=== PATIENT | male | born 1955 | race Hispanic/Latino ===

== ENCOUNTER 2022-04-12 23:51 | Emergency (ER) | payer OTHER ==
[2022-04-13] MEDS ORDERED: LIDOCAINE 1% MPF 2 ML AMPULE ONE (00:05)
[2022-04-13] MEDS ORDERED: LIDOCAINE 1% MPF 30 ML VIAL ONE (00:08)
[2022-04-13] MEDS ORDERED: LIDOCAINE 1% W/EPI 1:100,000 MDV 20 ML VIAL ONE (00:10)
[2022-04-13] MEDS ORDERED: TETANUS & DIPHTHERIA TOX,ADULT 0.5 ML VIAL ONE (01:44)
--- NOTE | 2022-04-13 01:58 | EDPHYS ---
Physician Documentation [facility] Name: Conor Mcclellan Jr Age: 66 yrs Sex: Male : 1955 Arrival Date: 04/12/2022 Time: 23:52 Bed 7 Private MD: ED Physician Sg Messina HPI: 04/13 02:01 This 66 yrs old Male presents to ER via Ambulatory with complaints of ms3 Laceration To Hand. 02:01 The patient has a laceration related to: Opening box occurred at home, and there are no ms3 complicating factors. The injury was accidental. The laceration(s) is(are) located on the left hand. Onset: The symptoms/episode began/occurred just prior to arrival. Associated signs and symptoms: Pertinent positives: heavy bleeding, Pertinent negatives: dizziness, numbness distal to injury, suspected foreign body. Historical: - Allergies: 00:11 PENICILLINS; ke1 - Immunization history:: Flu vaccine is not up to date. - Social history:: Smoking status: Patient reports the use of cigarette tobacco products, smokes one-half pack cigarettes per day. ROS: 02:01 Constitutional: Negative for fever, and chills. ENT: Negative for injury, pain, and ms3 discharge, Neck: Negative for injury, pain, and swelling, Cardiovascular: Negative for chest pain, and palpitations. Respiratory: Negative for shortness of breath, cough, wheezing, and pleuritic chest pain, Abdomen/GI: Negative for abdominal pain, nausea, vomiting, diarrhea, and constipation. 02:01 Skin: Positive for laceration(s). 02:01 All other systems are negative. Exam: 02:01 Constitutional: This is a well developed, well nourished patient who is awake, alert, ms3 and in no acute distress. Head/Face: Normocephalic, atraumatic. Chest/axilla: Normal chest wall appearance and motion. Nontender with no deformity. Cardiovascular: Regular rate and rhythm with a normal S1 and S2. No gallops, murmurs, or rubs. Normal PMI, no JVD. No pulse deficits. Respiratory: Lungs have equal breath sounds bilaterally, clear to auscultation and percussion. No rales, rhonchi or wheezes noted. No increased work of breathing, no retractions or nasal flaring. Abdomen/GI: Soft, non-tender, with normal bowel sounds. No distension or tympany. No guarding or rebound. No evidence of tenderness throughout. 02:01 Musculoskeletal/extremity: Extremities: noted in the left hand: laceration, FROM of L thumb, sensation of L thumb and L index finger intact, arterial bleeding present. 02:01 Skin: Vital Signs: 00:09 BP 165 / 82; Pulse 62; Resp 18; Temp 98.6; Pulse Ox 100% on R/A; Weight 108.86 kg; ke1 Height 5 ft. 7 in. (170.18 cm); Pain 5/10; 01:00 BP 165 / 76; Pulse 60; Resp 19; Pulse Ox 98% on R/A; sm5 02:25 BP 154 / 75; Pulse 65; Resp 18; Pulse Ox 100% on R/A; ke1 00:09 Body Mass Index 37.59 (108.86 kg, 170.18 cm) ke1 Laceration: 02:01 Wound Repair of 10cm ( 3.9in ) muscle penetrating laceration to left hand. Linear ms3 shaped.. Minimal contamination.. Arterial bleeding noted.. Distal neuro/vascular/tendon intact. Anesthesia: Wound infiltrated with 5 mls of 1% lidocaine w/ Epi. Wound prep: Copious irrigation. Skin closed with 14 4-0 Prolene using simple sutures and sterile technique. Dressed with 4x4's. Patient tolerated well. MDM: 00:57 Patient medically screened. ms3 02:05 Differential diagnosis: superficial laceration, vascular injury, Laceration. Data ms3 reviewed: vital signs, nurses notes. Counseling: I had a detailed discussion with the patient and/or guardian regarding: the historical points, exam findings, and any diagnostic results supporting the discharge/admit diagnosis, the need for outpatient follow up, to return to the emergency department if symptoms worsen or persist or if there are any questions or concerns that arise at home. ED course: Discussed physical exam findings with patient and his . Patient to follow-up with Dr Davis in 2-3 days. Patient understands and agrees with plan. All questions were answered. Return precautions discussed include worsening symptoms, or any other concerns. On reevaluation patient is alert and oriented x4, in no apparent distress, nontoxic-appearing, speaking full sentences, ambulatory in emergency department, wound hemostatic. 04/13 00:05 Order name: Suture Tray Setup; Complete Time: 00:12 tw5 04/13 00:12 Order name: Gloves, Sterile; Complete Time: 00:12 tw5 Administered Medications: 00:13 Drug: Lidocaine-Epinephrine -1%: (1:100,000) 10 ml {Note: administered at bedside by tw5 Dr. Messina.} Volume: 20 ml; Route: Infiltration; 01:52 Drug: ADAcel 0.5 ml {News Videographer: Track. Exp: 02/09/2024. Lot #: [id number]. } ke1 Route: IM; Site: left deltoid; 02:15 Drug: HYDROcodone-acetaminophen 5 mg-325 mg 1 tabs Route: PO; ke1 Disposition Summary: 04/13/22 01:57 Discharge Ordered Location: Home ms3 Condition: Stable ms3 Diagnosis - Laceration of deep palmar arch of left hand ms3 Followup: ms3 - With: Brandon Pendleton MD - When: 2 - 3 days - Reason: Recheck today's complaints Discharge Instructions: - Discharge Summary Sheet ms3 - Laceration Care, Adult ms3 Forms: - Medication Reconciliation Form ms3 - Thank You Letter ms3 - Antibiotic Education ms3 - Prescription Opioid Use ms3 Prescriptions: - Tylenol-Codeine #3 300 mg-30 mg Oral - take 1 tablet by ORAL route every 6-8 hours for 3 days; 10 tablet; Refills: 0, ms3 Product Selection Permitted Signatures: Sg Messina DO DO ms3 Nicole Sellers tw5 Mina Tapia RN RN ke1
--- NOTE | 2022-04-13 01:58 | ER ---
Nurse's Notes [facility] Name: Conor Mcclellan Jr Age: 66 yrs Sex: Male : 1955 Arrival Date: 04/12/2022 Time: 23:52 Bed 7 Private MD: Diagnosis: Laceration of deep palmar arch of left hand Presentation: 04/13 00:09 Chief complaint: Patient states: Cut left hand while working with knife. Coronavirus ke1 screen: Vaccine status: Patient reports receiving the 2nd dose of the covid vaccine. Ebola Screen: No symptoms or risks identified at this time. Complicating Factors: laceration. Initial Sepsis Screen: Does the patient meet any 2 criteria? No. Patient's initial sepsis screen is negative. Does the patient have a suspected source of infection? No. Patient's initial sepsis screen is negative. Risk Assessment: Do you want to hurt yourself or someone else? Patient reports no desire to harm self or others. Onset of symptoms was April 12, 2022. 00:09 Method Of Arrival: Ambulatory ke1 00:09 Acuity: MERARY 3 ke1 Triage Assessment: 00:11 General: Appears uncomfortable, Behavior is appropriate for age. Pain: Complains of ke1 pain in left hand Pain does not radiate. Pain currently is 5 out of 10 on a pain scale. at worst was 9 out of 10 on a pain scale. level that patient reports is acceptable is 5 out of 10 on a pain scale. Neuro: Level of Consciousness is awake, alert, Oriented to person, place, time, situation. Injury Description: Laceration sustained to left hand. Historical: - Allergies: 00:11 PENICILLINS; ke1 - Immunization history:: Flu vaccine is not up to date. - Social history:: Smoking status: Patient reports the use of cigarette tobacco products, smokes one-half pack cigarettes per day. Screenin:14 Abuse screen: Denies threats or abuse. Nutritional screening: No deficits noted. ke1 Tuberculosis screening: No symptoms or risk factors identified. Fall Risk No fall in past 12 months (0 pts). No secondary diagnosis (0 pts). No IV (0 pts). Ambulatory Aid- None/Bed Rest/Nurse Assist (0 pts). Gait- Normal/Bed Rest/Wheelchair (0 pts) Mental Status- Oriented to own ability (0 pts). Total Posada Fall Scale indicates No Risk (0-24 pts). Assessment: 00:14 Musculoskeletal: Capillary refill < 3 seconds, Range of motion: intact in all ke1 extremities. 01:00 Injury Description: Laceration is bleeding moderately. ke1 01:59 Reassessment: Patient is alert, oriented x 3, equal unlabored respirations, skin ke1 warm/dry/pink. Injury Description: sutures done by MD. Vital Signs: 00:09 BP 165 / 82; Pulse 62; Resp 18; Temp 98.6; Pulse Ox 100% on R/A; Weight 108.86 kg; ke1 Height 5 ft. 7 in. (170.18 cm); Pain 5/10; 01:00 BP 165 / 76; Pulse 60; Resp 19; Pulse Ox 98% on R/A; sm5 02:25 BP 154 / 75; Pulse 65; Resp 18; Pulse Ox 100% on R/A; ke1 00:09 Body Mass Index 37.59 (108.86 kg, 170.18 cm) ke1 ED Course: 04/12 23:52 Patient arrived in ED. bp1 23:53 Sg Messina DO is Attending Physician. ms3 05 00:07 Mina Tapia, CANDI is Primary Nurse. ke1 00:11 Triage completed. ke1 00:11 Arm band placed on. ke1 00:14 Bed in low position. ke1 01:48 Assist provider with laceration repair on left hand using sutures. Set up tray. sm5 Performed by Sg Messina DO Patient tolerated well. Wound care: to laceration located on left hand was cleaned with soap and water, Patient tolerated well. 01:56 Brandon Pendleton MD is Referral Physician. ms3 02:25 Patient did not have IV access during this emergency room visit. ke1 Administered Medications: 00:13 Drug: Lidocaine-Epinephrine -1%: (1:100,000) 10 ml {Note: administered at bedside by tw5 Dr. Messina.} Volume: 20 ml; Route: Infiltration; 01:52 Drug: ADAcel 0.5 ml {Product Tester Fiberglass: Hitch Radio. Exp: 02/09/2024. Lot #: [id number]. } ke1 Route: IM; Site: left deltoid; 02:15 Drug: HYDROcodone-acetaminophen 5 mg-325 mg 1 tabs Route: PO; ke1 Medication: 01:59 Vaccine Information Statement (VIS) provided today. Questions and/or concerns ke1 addressed. VIS edition date: April 13, 2022. Outcome: 01:57 Discharge ordered by . ms3 02:25 Discharged to home ambulatory. ke1 02:25 Condition: good 02:25 Discharge instructions given to patient. 02:27 Patient left the ED. ke1 Signatures: Sg Messina DO DO ms3 Lara Urbina Tiffany 5 Ethel Lubin RN RN 5 Mina Tapia RN RN ke1
[2022-04-13] MEDS ORDERED: HYDROCODONE/APAP 5/325 MG TAB ONE (02:17)
[2022-04-13 16:27] VITALS: TEMP 98.6
[2022-04-13 16:37] VITALS: BP 154/75; O2SAT 100
== END 2022-04-13 02:27 | disposition home or self-care (01) ==
LOC: ER 23:51
PROC: 0JQK0ZZ Repair Left Hand Subcutaneous Tissue and Fascia, Open Approach (ICD-10-PCS; principal; 2022-04-13)
DX: S61.412A Laceration without foreign body of left hand, initial encounter (principal); W27.8XXA Contact with other nonpowered hand tool, initial encounter; Y92.009 Unspecified place in unspecified non-institutional (private) residence as the place of occurrence of the external cause; Z23 Encounter for immunization; Z88.0 Allergy status to penicillin; F17.210 Nicotine dependence, cigarettes, uncomplicated
CPT/HCPCS: 90471; 90714; 99283

== ENCOUNTER 2022-04-13 11:15 | Emergency (ER) | payer OTHER ==
--- NOTE | 2022-04-13 12:40 | ER ---
Nurse's Notes [facility] Name: Conor Mcclellan Jr Age: 66 yrs Sex: Male : 1955 Arrival Date: 04/13/2022 Time: 11:15 Bed 11 Private MD: Diagnosis: Laceration without foreign body of left hand-Encounter for wound recheck Presentation: 04/13 11:18 Chief complaint: Patient states: laceration to left palm , was sutured last night but iw now wound is bleeding through bandage. Coronavirus screen: At this time, the client does not indicate any symptoms associated with coronavirus-19. Ebola Screen: Patient negative for fever greater than or equal to 101.5 degrees Fahrenheit, and additional compatible Ebola Virus Disease symptoms Patient denies exposure to infectious person. Patient denies travel to an Ebola-affected area in the 21 days before illness onset. No symptoms or risks identified at this time. Initial Sepsis Screen: Does the patient meet any 2 criteria? No. Patient's initial sepsis screen is negative. Does the patient have a suspected source of infection? No. Patient's initial sepsis screen is negative. Risk Assessment: Do you want to hurt yourself or someone else? Patient reports no desire to harm self or others. 11:18 Method Of Arrival: Ambulatory iw 11:18 Acuity: MERARY 4 iw 11:21 Onset of symptoms was April 13, 2022. iw Historical: - Allergies: 11:20 PENICILLINS; iw - Home Meds: 11:20 losartan-hydrochlorothiazide oral [Active]; Metformin Oral [Active]; iw bisoprolol-hydrochlorothiazide oral [Active]; atorvastatin oral [Active]; - PMHx: 11:20 Diabetes mellitus; iw - Immunization history:: Last tetanus immunization: up to date. - Social history:: Smoking status: . - Family history:: not pertinent. Screenin:45 Abuse screen: Denies threats or abuse. Denies injuries from another. Nutritional iw screening: No deficits noted. Tuberculosis screening: No symptoms or risk factors identified. Fall Risk None identified. Assessment: 11:35 General: Appears in no apparent distress. Behavior is calm, cooperative. Pain: iw Complains of pain in left hand. Neuro: Level of Consciousness is awake, alert, obeys commands, Moves all extremities. Cardiovascular: Patient's skin is warm and dry. Respiratory: Respiratory effort is even, unlabored, Respiratory pattern is regular. Derm: Wound noted left hand. Musculoskeletal: Range of motion: intact in all extremities. Vital Signs: 11:21 BP 155 / 54; Pulse 63; Resp 16; Temp 98.6; Pulse Ox 96% on R/A; iw ED Course: 11:15 Patient arrived in ED. as 11:19 Triage completed. iw 11:20 Marta Meng, RN is Primary Nurse. iw 11:20 Patient has correct armband on for positive identification. iw 11:21 Arm band placed on. iw 11:31 Radha Ruby MD is Attending Physician. ma2 12:40 Brandon Pendleton MD is Referral Physician. ma2 12:48 No provider procedures requiring assistance completed. Patient did not have IV access iw during this emergency room visit. Administered Medications: 12:49 Drug: Triple Antibiotic ([id number]) Ointment 1 application Route: iw Topical; Site: affected area; Medication: 12:49 VIS not applicable for this client. iw Outcome: 12:39 Discharge ordered by . ma2 12:48 Discharged to home ambulatory. iw 12:48 Condition: good 12:48 Discharge instructions given to patient, Instructed on discharge instructions, follow up and referral plans. Demonstrated understanding of instructions, follow-up care. 12:49 Patient left the ED. iw Signatures: Yane Torres as Marta Meng, CANDI CHRISTOPHER iw Radha Ruby MD MD ma2 Corrections: (The following items were deleted from the chart) 11:23 11:21 Pulse 63bpm; Resp 16bpm; Pulse Ox 96% RA; Temp 98.6F; iw iw
--- NOTE | 2022-04-13 12:40 | EDPHYS ---
Physician Documentation [facility] Name: Conor Mcclellan Jr Age: 66 yrs Sex: Male : 1955 Arrival Date: 04/13/2022 Time: 11:15 Bed 11 Private MD: ED Physician Radha Ruby HPI: 04/13 12:32 This 66 yrs old Male presents to ER via Ambulatory with complaints of Suture ma2 Recheck, Laceration. 12:32 66-year-old male, had deep laceration of right hand over thenar muscle that was ma2 repaired last night in our ER. He comes back to the ER because he had an episode where blood was oozing between sutures that soaked the dressing, estimated bleeding to be about 5 mL. Bleeding has stopped. Patient is here for evaluation. Patient also stated that he wants an antibiotics as he is worried that it may get infected. Of note he denies fever or vomiting, denies hand pain or worsening of the swelling or new symptoms,. Historical: - Allergies: 11:20 PENICILLINS; iw - Home Meds: 11:20 losartan-hydrochlorothiazide oral [Active]; Metformin Oral [Active]; iw bisoprolol-hydrochlorothiazide oral [Active]; atorvastatin oral [Active]; - PMHx: 11:20 Diabetes mellitus; iw - Immunization history:: Last tetanus immunization: up to date. - Social history:: Smoking status: . - Family history:: not pertinent. ROS: 12:32 Constitutional: Negative for fever, chills, and weight loss. ma2 12:32 All other systems are negative. Exam: 12:32 Constitutional: This is a well developed, well nourished patient who is awake, alert, ma2 and in no acute distress. Head/Face: Normocephalic, atraumatic. Back: No spinal tenderness. No costovertebral tenderness. Full range of motion. Skin: Warm, dry with normal turgor. Normal color with no rashes, no lesions, and no evidence of cellulitis. MS/ Extremity: Left hand exam shows surgically repaired laceration at the base of the left thumb over the thenar muscles, there is no signs of cellulitis, area is mildly swollen however there is no fluctuance to suggest an abscess, no crepitations area is nontender, there is dry and in good orders, all all sutures are in place, peripheral is brisk sensation is intact all finger movement is intact at 5 out of 5 at both DIP and PIP of both index and thumb finger, sensation intact. No compartment syndrome. No signs of tenosynovitis otherwise no cyanosis. Neurovascular intact. Full, normal range of motion. Neuro: Awake and alert, GCS 15, oriented to person, place, time, and situation. Cranial nerves II-XII grossly intact. Motor strength 5/5 in all extremities. Sensory grossly intact. Cerebellar exam normal. Normal gait. Vital Signs: 11:21 BP 155 / 54; Pulse 63; Resp 16; Temp 98.6; Pulse Ox 96% on R/A; iw MDM: 12:32 Differential diagnosis: Wound briefly oozed blood, at this time there is no active ma2 bleeding or worsening of the swelling, specifically there is no arterial or or venous injury, no cellulitis or tenosynovitis. Data reviewed: vital signs, nurses notes. Counseling: I had a detailed discussion with the patient and/or guardian regarding: the historical points, exam findings, and any diagnostic results supporting the discharge/admit diagnosis, the presence of at least one elevated blood pressure reading (>120/80) during this emergency department visit, the need for outpatient follow up. Response to treatment: the patient's symptoms have markedly improved after treatment. 12:39 Patient medically screened. ma2 04/13 12:12 Order name: Dressing - Wound; Complete Time: 12:47 ma2 Administered Medications: 12:49 Drug: Triple Antibiotic ([id number]) Ointment 1 application Route: iw Topical; Site: affected area; Disposition Summary: 04/13/22 12:39 Discharge Ordered Location: Home ma2 Condition: Stable ma2 Diagnosis - Laceration without foreign body of left hand - Encounter for wound recheck ma2 Followup: ma2 - With: Private Physician - When: Tomorrow - Reason: If symptoms return, Continuance of care Followup: ma2 - With: Brandon Pendleton MD - When: Tomorrow - Reason: If symptoms return, Continuance of care Discharge Instructions: - Discharge Summary Sheet ma2 - Laceration Care, Adult, [id number] ma2 Forms: - Medication Reconciliation Form ma2 - Thank You Letter ma2 - Antibiotic Education ma2 - Prescription Opioid Use ma2 Prescriptions: - Augmentin 875-125 mg Oral Tablet - take 1 tablet by ORAL route every 12 hours for 10 days; 20 tablet; Refills: 0, ma2 Product Selection Permitted - Clindamycin HCl 300 mg Oral Capsule - take 1 capsule by ORAL route every 6 hours for 10 days; 40 capsule; Refills: 0, ma2 Product Selection Permitted Signatures: Marta Meng RN RN iw Alzahri, Mohammad, MD MD ar2
[2022-04-13] MEDS ORDERED: MUPIROCIN 2% OINT 22GM TUBE TOP ONE (12:46)
[2022-04-13 18:52] VITALS: BP 155/54; TEMP 98.6; O2SAT 96
== END 2022-04-13 12:49 | disposition home or self-care (01) ==
LOC: ER 11:15
DX: S61.412D Laceration without foreign body of left hand, subsequent encounter (principal); E11.9 Type 2 diabetes mellitus without complications; Z88.0 Allergy status to penicillin
CPT/HCPCS: 99283